=== PATIENT | female | born 1995 | race Caucasian/White ===

== ENCOUNTER 2016-11-23 14:06 | Emergency (ER) | payer OTHER ==
[~2016-11-23] VITALS: Ht 154.9 cm; Wt 54.5 kg
[~2016-11-23 14:06] MED LIST: AZIT250T94 PO; CIPR500T4 PO; HYDR-3498 PO; IBUP-1542 PO; MAG-19 PO; OMEP20CA9 PO
[2016-11-23 14:11] VITALS: Ht 154.9 cm; Wt 54.5 kg
[2016-11-23] MEDS ORDERED: SOD CHLORIDE 0.9% 1,000 ML IV STA (17:21)
[2016-11-23] MEDS ORDERED: KETOROLAC 30 MG INJ IV STA (17:21)
[2016-11-23 18:02] LABS: BASOPHILS % 0.4 % (0.0-2.0); EOSINOPHILS # 0.2 10^3/ul (0.0-0.5); EOSINOPHILS % 2.1 % (0.0-7.0); HEMATOCRIT 40.9 % (37.0-47.0); HEMOGLOBIN 14.1 g/dl (12.0-16.0); LYMPHOCYTES # 1.3 10^3/ul (0.8-2.9); LYMPHOCYTES % 18.2 % (15.0-51.0); MEAN CORPUSCULAR HEMOGLOBIN 31.8 pg (29.0-33.0); MEAN CORPUSCULAR HGB CONC 34.5 g/dl (32.0-37.0); MEAN CORPUSCULAR VOLUME 92.3 fl (82.0-101.0); MEAN PLATELET VOLUME 12.9 fl (7.4-10.4); MONOCYTE # 0.6 10^3/ul (0.3-0.9); MONOCYTES % 8.3 % (0.0-11.0); NEUTROPHILS % 70.9 % (39.0-77.0); PLATELET COUNT 150 10^3/UL (140-415); RED BLOOD COUNT 4.43 10^6/ul (4.20-5.40); RED CELL DISTRIBUTION WIDTH 12.3 % (11.5-14.5); WHITE BLOOD COUNT 7.2 10^3/ul (4.8-10.8)
[2016-11-23 18:07] LABS: ADD UMIC YES; UR ASCORBIC ACID NEGATIVE (NEGATIVE); UR BACTERIA FEW /HPF (NONE SEEN); UR BILIRUBIN (Dip) NEGATIVE (NEGATIVE); UR BLOOD (Dip) 1+ mg/dL (NEGATIVE); UR CLARITY CLOUDY (CLEAR); UR COLOR YELLOW (YELLOW); UR GLUCOSE (Dip) NEGATIVE (NEGATIVE); UR KETONES (Dip) NEGATIVE (NEGATIVE); UR LEUKOCYTE ESTERASE (Dip) 3+ Leu/ul (NEGATIVE); UR MUCUS FEW /HPF (NONE SEEN); UR NITRITE (Dip) NEGATIVE (NEGATIVE); UR RBC 5 /HPF (0-5); UR SPECIFIC GRAVITY (Dip) 1.026 (1.003-1.030); UR SQUAMOUS EPITHELIAL CELL MANY /HPF (FEW); UR TOTAL PROTEIN (Dip) NEGATIVE (NEGATIVE); UR UROBILINOGEN (Dip) 1+ mg/dL (NEGATIVE)
[2016-11-23 18:19] LABS: ALBUMIN 4.7 g/dl (3.3-4.9); ALBUMIN/GLOBULIN RATIO 1.2; BILIRUBIN,INDIRECT 0.4 mg/dl (0-1.1); BILIRUBIN,TOTAL 0.4 mg/dl (0.2-1.3); CALCIUM 9.3 mg/dl (8.4-10.2); CREATININE 0.66 mg/dl (0.44-1.00); POTASSIUM 3.6 mmol/L (3.5-5.1); TOTAL PROTEIN 8.6 g/dl (6.1-8.1)
--- NOTE | 2016-11-23 19:53 | RADRPT ---
PROCEDURE: CT abdomen and pelvis with. contrast. CLINICAL INDICATION: Abdominal Pain TECHNIQUE: Noncontrast CT examination of the abdomen and pelvis, with axial, sagittal and coronal reformatted images. CTDI: 4.73 mGy and DLP: 246.12 mGy-cm. COMPARISON: CT abdomen and pelvis dated 10/26/2014. FINDINGS: CT abdomen: The lung bases are clear. The heart size is normal, without pericardial thickening or effusion. The liver is normal in size and density without focal mass or intrahepatic biliary dilatation. The spleen is normal in size and homogeneous in density. The stomach is partially collapsed, but is yahir ssly unremarkable. The pancreas as visualized is normal. The gallbladder and biliary tree are unre markable and there is no evidence for biliary dilatation. The adrenal glands are symmetric and norm al. The kidneys are symmetrically unremarkable as well. No renal calculus or obstructive uropathy o r mass lesion is seen. The aorta is of normal caliber. No aortic vascular calcifications are present. There is no retrope ritoneal lymphadenopathy. The sander hepatis region is clear. The bowel and mesentery, as visualize d, are equally unremarkable. CT pelvis: The small bowel loops situated within the pelvis are unremarkable. The pelvic organs are normal. T he pelvic sidewalls and inguinal regions are clear. The sigmoid colon and rectum are all unremarkab le. No mass, lymphadenopathy, or free fluid is seen. No acute inflammation is seen. The appendix is unremarkable. The surrounding osseous structures are remarkable for mild degenerative spondylosis of the spine. N o osteolytic or osteoblastic lesion is detected. IMPRESSION: Unremarkable CT scan of the abdomen and pelvis. RPTAT: [facility] Physician Remigio Date Time Electronically viewed and signed by Physician Remigio on 11/23/2016 19:52 RS/
[2016-11-23] MEDS ORDERED: CEPH-443 PO (19:57)
[2016-11-23] MEDS ORDERED: DICY10CA60 PO (19:58)
--- NOTE | 2016-11-23 20:04 | ERD ---
ER Documentation Chief Complaint Date/Time DATE: 11/23/16 TIME: 20:01 Chief Complaint ABD PAIN X 2 DAYS WITH DIZZINESS HPI This is a 29-year-old female presents to the ER with generalized abdominal pain that started on Thursday. Patient states abdominal pain is located in the middle of her abdomen and has been intermittent. Pain is sharp and severe when it occurs. It is nonradiating. She admits to nausea however denies vomiting and diarrhea. Patient denies any urinary frequency or dysuria. Patient states that the pain is so severe that it makes her dizzy. Patient denies any fevers or chills. Denies any back pain. She denies any chest pain shortness of breath. ROS 12 point review of systems was done, all negative except per HPI. Medications Home Meds Active Scripts Dicyclomine Hcl* (Bentyl*) 10 Mg Capsule, 10 MG PO QID for 7 Days, CAP Prov:FORD ANAND 11/23/16 Cephalexin* (Keflex*) 500 Mg Capsule, 500 MG PO BID for 7 Days, CAP Prov:FODR ANAND 11/23/16 Magaldrate/Simethicone* (Mylanta*) 355 Ml Susp, 30 ML PO QID Y for GASTROINTESTINAL UPSET, #1 BOTTLE Prov:OCTAVIO DWYER NP 08/22/15 Omeprazole* (Prilosec*) 20 Mg Capsule.dr, 20 MG PO DAILY, #30 CAP Prov:OCTAVIO DWYER NP 08/22/15 Hydrocodone Bit-Acetaminophen* ([place]*) 5-325 Mg Tab, 1 TAB PO Q6 Y for PAIN, # 20 TAB Prov:OCTAVIO DWYER NP 08/22/15 Ibuprofen* (Motrin*) 600 Mg Tab, 600 MG PO Q6, #20 TAB Prov:SOFIA HOYT PA-C 03/14/15 Azithromycin* (Zithromax*) 250 Mg Tablet, 250 MG PO .MARY KAY DIRECTED, #6 TAB TAKE 500 MG (2 TABS) THE FIRST DAY THEN 250 MG (1 TAB) DAYS 2-5 Prov:SOFIA HOYT PA-C 03/14/15 Ciprofloxacin Hcl* (Ciprofloxacin Hcl*) 500 Mg Tablet, 500 MG PO BID for 3 Days , TAB Prov:OCTAVIO DWYER NP 10/26/14 Allergies Allergies: Coded Allergies: No Known Allergy (Unverified , 09/01/12) PMhx/Soc History of Surgery: No Anesthesia Reaction: No Hx Neurological Disorder: No Hx Respiratory Disorders: No Hx Cardiac Disorders: No Hx Psychiatric Problems: No Hx Miscellaneous Medical Probl: No Hx Alcohol Use: No Hx Substance Use: No Hx Tobacco Use: No Smoking Status: Never smoker Physical Exam Vitals Vital Signs Date Time Temp Pulse Resp B/P Pulse Ox O2 Delivery O2 Flow Rate FiO2 11/23/16 14:11 98.0 76 18 102/58 100 Physical Exam GENERAL: The patient is well developed and appropriate for usual state of health , in no apparent distress. HEENT: Atraumatic. NECK: C-spine is soft and supple. There is no cervical lymphadenopathy. CHEST: Clear to auscultation bilaterally. There are no rales, wheezes or rhonchi. HEART: Regular rate and rhythm. No murmurs, clicks, rubs or gallops. ABDOMEN: Soft nondistended, tender to palpation in the mid abdomen in the right upper quadrant and in the left lower quadrant. Good bowel sounds. No rebound or guarding. No gross peritonitis. No gross organomegaly or masses. No Coleman sign or McBurney point tenderness. BACK: No midline or flank tenderness. NEURO: Alert and oriented SKIN: There is no apparent rash or petechia. The skin is warm and dry. Result Diagram: 11/23/16 1740 11/23/16 1740 Results 24 hrs Laboratory Tests Test 11/23/16 17:40 White Blood Count 7.210^3/ul Red Blood Count 4.4310^6/ul Hemoglobin 14.1g/dl Hematocrit 40.9% Mean Corpuscular Volume 92.3fl Mean Corpuscular Hemoglobin 31.8pg Mean Corpuscular Hemoglobin Concent 34.5g/dl Red Cell Distribution Width 12.3% Platelet Count 05864^3/UL Mean Platelet Volume 12.9fl Neutrophils % 70.9% Lymphocytes % 18.2% Monocytes % 8.3% Eosinophils % 2.1% Basophils % 0.4% Nucleated Red Blood Cells % 0.0/100WBC Neutrophils # (Manual) 5.110^3/ul Lymphocytes # 1.310^3/ul Monocytes # 0.610^3/ul Eosinophils # 0.210^3/ul Basophils # 0.010^3/ul Nucleated Red Blood Cells # 0.010^3/ul Urine Color YELLOW Urine Clarity CLOUDY Urine pH 5.0 Urine Specific [place] 1.026 Urine Ketones NEGATIVEmg/dL Urine Nitrite NEGATIVEmg/dL Urine Bilirubin NEGATIVEmg/dL Urine Urobilinogen 1+mg/dL Urine Leukocyte Esterase 3+Kishore/ul Urine Microscopic RBC 5/HPF Urine Microscopic WBC 34/HPF Urine Squamous Epithelial Cells MANY/HPF Urine Bacteria FEW/HPF Urine Mucus FEW/HPF Urine Hemoglobin 1+mg/dL Urine Glucose NEGATIVEmg/dL Urine Total Protein NEGATIVEmg/dl Sodium Level 140mmol/L Potassium Level 3.6mmol/L Chloride Level 104mmol/L Carbon Dioxide Level 24mmol/L Anion Gap 16 Blood Urea Nitrogen 12mg/dl Creatinine 0.66mg/dl Glucose Level 73mg/dl Calcium Level 9.3mg/dl Total Bilirubin 0.4mg/dl Direct Bilirubin 0.00mg/dl Indirect Bilirubin 0.4mg/dl Aspartate Amino Transf (AST/SGOT) 25IU/L Alanine Aminotransferase (ALT/SGPT) 29IU/L Alkaline Phosphatase 106IU/L Total Protein 8.6g/dl Albumin 4.7g/dl Globulin 3.90g/dl Albumin/Globulin Ratio 1.20 Lipase 58U/L Current Medications Medications (Trade) Dose Ordered Sig/Lakeshia Route PRN Reason Start Time Stop Time Status Last Admin Dose Admin Sodium Chloride (NS) 1,000 ml @ 1,000 mls/hr Q1H STAT IV 11/23/16 17:21 11/23/16 18:20 DC 11/23/16 17:48 Ketorolac Tromethamine (Toradol) 30 mg ONCE STAT IV 11/23/16 17:21 11/23/16 17:22 DC 11/23/16 17:48 Procedures/MDM Differential Diagnosis: GERD, gastritis, peptic ulcer disease, pancreatitis, cholecystitis, choledocholithiasis, biliary colic, cholangitis, Dobc-Rmpy-Cfboel , ACS/ME, Pnuemonia . appendicitis, hernia,UTI, constipation. This is a 29-year -old female presents to the ER generalized abdominal pain, at this time there is no evidence of acute abdominal emergency. Patient's abdominal examination is benign and she is afebrile and well-appearing. Patient did have a urinary tract infection she will be treated for this. She will be sent home with Bentyl for her pain. I advised patient to follow-up with a GI doctor for further testing and possible endoscopy. Patient is to follow-up with her primary care doctor and get a referral within 1-2 days return to ER sooner if symptoms worsen. My medical decision making sure with the patient she understands and agrees with plan. Departure Diagnosis: Primary Impression: UTI (urinary tract infection) Additional Impression: Abdominal pain Condition: Stable Patient Instructions: Abdominal Pain Additional Instructions: Call your primary care doctor TOMORROW for an appointment during the next 1-2 days.See the doctor sooner or return here if your condition worsens before your appointment time. FORD ANAND Nov 23, 2016 20:04
[2016-11-23 20:07] VITALS: BP 111/71; PULSE 79; RESP 18; TEMP 98.2
== END 2016-11-23 20:08 | disposition home or self-care (01) ==
LOC: FTE 14:06
DX: N39.0 Urinary tract infection, site not specified (principal)
CPT/HCPCS: 36415; 74176; 80053; 81001; 83690; 85025; 96374; J1885; J7030; Z7502

== ENCOUNTER 2017-04-07 22:40 | Emergency (ER) | END 2017-04-08 07:53 | disposition home or self-care (01) ==

== ENCOUNTER 2018-09-01 13:38 | Emergency (ER) | payer OTHER ==
[~2018-09-01] VITALS: Ht 154.9 cm; Wt 53.2 kg
[~2018-09-01 13:38] MED LIST changes: +ACET500C5 PO; +AZIT250T PO; -AZIT250T94 PO; +CEPH-443 PO; +DICY10CA40 PO; +FLUT9.9S NASAL; +SODI126M NASAL
[2018-09-01 13:41] VITALS: BP 108/62; PULSE 83; RESP 16; Ht 154.9 cm; Wt 53.2 kg
[2018-09-01] MEDS ORDERED: BEN25 PO (14:25)
[2018-09-01] MEDS ORDERED: MED4DP PO (14:25)
[2018-09-01] MEDS ORDERED: TRIA60LO10 TOP (14:25)
--- NOTE | 2018-09-01 14:41 | ERD ---
ER Documentation Chief Complaint Chief Complaint RASH ON FACE AND ABDOMEN HPI Patient is a 22-year-old female, no past medical history, presents the ER for concerns of rash on her eyelids as well as her abdomen. Patient has history of acne. Patient started tretinoin cream started 5 days ago. Patient states that she did not put the cream on her eyelids. She states she has burning pain to her eyelids as well as itching. Patient also reports macular erythematous lesions on the patient's trunk. She has no fevers or chills. No recent travel. Patient has no lip tongue, tongue swelling, difficulty breathing or chest tightness. ROS All systems reviewed and are negative except as per history of present illness. Medications Home Meds Active Scripts Triamcinolone Acetonide (Triamcinolone Acetonide) 0.025% - 60 Ml Lotion, 1 APPLIC TOP TID, #1 BOTTLE Prov:JOSE JUAN PRIETO PA-C 09/01/18 Diphenhydramine Hcl* (Benadryl*) 25 Mg Cap, 25 MG PO Q6, #30 CAP Prov:JOSE JUAN PRIETO PA-C 09/01/18 Methylprednisolone* (Medrol* DOSE PACK) 4 Mg/Dose-Pack Tab.ds.pk, 4 MG PO . DIRECTED, #1 PACKET Prov:JOSE JUAN PRIETO PA-C 09/01/18 Fluticasone Propionate (Flonase Allergy Relief) 9.9 Ml [place].susp, 1 SPRAY NASAL DAILY, #1 BOTTLE TO EACH NOSTRIL Prov:ESTELLA SARGENT. FISHING CAPTAIN 04/08/17 Sodium Chloride (Saline Nasal Mist) 126 Ml Mist, 2 SPRAY NASAL Q2H PRN for NASAL CONGESTION, #1 BOTTLE Prov:ESTELLA SARGENT. FISHING CAPTAIN 04/08/17 Acetaminophen* (Tylophen*) 500 Mg Capsule, 1 CAP PO Q6H PRN for PAIN AND OR ELEVATED TEMP, #20 CAP Prov:ESTELLA SARGENT. FISHING CAPTAIN 04/08/17 Dicyclomine HCl (Dicyclomine HCl) 10 Mg Capsule, 10 MG PO QID for 7 Days, CAP Prov:CHENGFORD HELLER 11/23/16 Cephalexin* (Keflex*) 500 Mg Capsule, 500 MG PO BID for 7 Days, CAP Prov:CHENGFORD 9/3/17 Magaldrate/Simethicone* (Mylanta*) 355 Ml Susp, 30 ML PO QID PRN for GASTROINTESTINAL UPSET, #1 BOTTLE Prov:OCTAVIO DWYER NP 08/22/15 Omeprazole* (Prilosec*) 20 Mg Capsule.dr, 20 MG PO DAILY, #30 CAP Prov:OCTAVIO DWYER FISHING CAPTAIN 08/22/15 Hydrocodone Bit-Acetaminophen* ([place]*) 5-325 Mg Tab, 1 TAB PO Q6 PRN for PAIN, #20 TAB Prov:OCTAVIO DWYER FISHING CAPTAIN 08/22/15 Ibuprofen* (Motrin*) 600 Mg Tab, 600 MG PO Q6, #20 TAB Prov:SOFIA HOYT PA-C 03/14/15 Azithromycin* (Zithromax*) 250 Mg Tablet, 250 MG PO .ZPACK DIRECTED, #6 TAB TAKE 500 MG (2 TABS) THE FIRST DAY THEN 250 MG (1 TAB) DAYS 2-5 Prov:SOFIA HOYT PA-C 03/14/15 Ciprofloxacin Hcl* (Ciprofloxacin Hcl*) 500 Mg Tablet, 500 MG PO BID for 3 Days, TAB Prov:OCTAVIO DWYER NP 10/26/14 Allergies Allergies: Coded Allergies: No Known Allergy (Unverified , 09/01/12) PMhx/Soc History of Surgery: No Anesthesia Reaction: No Hx Neurological Disorder: No Hx Respiratory Disorders: No Hx Cardiac Disorders: No Hx Psychiatric Problems: No Hx Miscellaneous Medical Probl: No Hx Alcohol Use: Yes Hx Substance Use: Yes (MARIJUANA) Hx Tobacco Use: No Smoking Status: Never smoker FmHx Family History: No diabetes Physical Exam Vitals Vital Signs Date Temp Pulse Resp B/P (MAP) Pulse Ox O2 O2 Flow FiO2 Time Delivery Rate 09/01/18 98.0 83 16 108/62 98 13:41 (77) Physical Exam GENERAL: Well-developed, well-nourished female. Appears in no acute distress. Speaking in full sentences. HEAD: Normocephalic, atraumatic. EYES: Pupils are equally reactive bilaterally. EOMs grossly intact. No conjunctival erythema. Mild swelling noted to bilateral upper eyelids. Patient has Vaseline all over her eyelids. No discharge. ENT: Moist mucous membranes. No uvula deviation. No kissing tonsils. No lip swelling. No tongue swelling. Oropharynx is open and patient is tolerating secretions well. NECK: Supple. No meningismus. Normal range of motion of the neck. LUNG: Clear to auscultation bilaterally. No rhonchi, wheezing, rales or coarse breath sounds. HEART: Regular rate and rhythm. No murmurs, rubs or gallops. EXTREMITIES: Equal pulses bilaterally. No peripheral clubbing, cyanosis or edema. No unilateral leg swelling. NEUROLOGIC: Alert and oriented. Moving all four extremities without any difficulty. Normal speech. Steady gait. SKIN: Erythematous macular lesions on the patient's consistent with a nonspecific dermatitis. No streaking. No warmth. Procedures/MDM MEDICAL DECISION MAKING: This is a 22-year-old female who presents to the ER for concerns of a rash on her torso and eyelid swelling/itching. Vital signs were reviewed. Patient was afebrile. Patient is not diabetic. Skin exam is consistent with eyelid brandny matitis as well as nonspecific rash. Patient will be prescribed Medrol Dosepak and advised to take Benadryl. Dermatology follow-up was advised. Patient will be given triamcinolone cream for abdomen only. Patient advised not to use this cream to her eyelids. Low suspicion for necrotizing fasciitis, sepsis, gangrene, Shamar-Frankie syndrome, toxic epidural necrolysis, cellulitis, herpes zoster, viral exanthem, anaphylaxis, fungal infection, insect bite, impetigo, dermatitis. She was nontoxic, [id number] prior to discharge. PRESCRIPTIONS: Medrol Dosepak, triamcinolone, Benadryl DISCHARGE: At this time, patient is stable for discharge and outpatient management. I have advised the patient to avoid any new products, creams or possible allergens. I moses bull advised the patient to avoid scratching the lesions. I have instructed the patient to follow-up with his/her primary care physician in 1-2 days. If symptoms persist, patient may need to see a steam turbine assembler for further examinations and testing. I have instructed the patient to promptly return to the ER at any time for any new or worsening symptoms including increased pain, fever, redness, swelling, warmth, difficulty breathing or vomiting. The patient and/or family expressed understanding of and agreement with this plan. All questions were answered. Home care instructions were provided. Disclaimer: Inadvertent spelling and grammatical errors are likely due to EHR/dictation software use and do not reflect on the overall quality of patient care. Also, please note that the electronic time recorded on this note does not necessarily reflect the actual time of the patient encounter. Departure Diagnosis: Primary Impression: Rash Additional Impression: Eyelid dermatitis, allergic/contact Patient Instructions: Self-Care for Skin Rashes Additional Instructions: Call your primary care doctor TOMORROW for an appointment during the next 1-2 days.See the doctor sooner or return here if your condition worsens before your appointment time. JOSE JUAN PRIETO PA-C Sep 01, 2018 14:41
== END 2018-09-01 16:06 | disposition home or self-care (01) ==
LOC: FTE 13:38
DX: L23.9 Allergic contact dermatitis, unspecified cause (principal)
CPT/HCPCS: 99283